=== PATIENT | female | born 1940 | race Caucasian/White ===

== ENCOUNTER → 2017-10-11 | Outpatient (CLI) | payer MEDICARE, OTHER ==
[~2017-10-11] MED LIST: AMIT25 PO; ASPI325; CALCIUM + D3 E1 EACH; FIBER500 MG; FLAX; LINZESS145 MCG PO; Lutein 15 MG S1 EACH; METF500 PO; Multiple Vitam1 EAC1; PROLIA60 MG/1 ML; SYNTHROID112 MCG PO; VAGIFEM10 MCG; ZOLM2.5
== END | disposition home or self-care (01) ==
LOC: PLD 10:14 → LAB SHORT 10:14
DX: D22.5 Melanocytic nevi of trunk (principal)
CPT/HCPCS: 88305

== ENCOUNTER 2022-04-22 08:08 | Emergency (ER) | payer MEDICARE, OTHER ==
[~2022-04-22] VITALS: Ht 157.5 cm; Wt 48.5 kg
[2022-04-22 08:30] LABS: BASOPHILS PERCENT AUTO 2 % (0-2); EOSINOPHILS ABSOLUTE AUTO 0.06 K/mm3 (0.00-0.68); EOSINOPHILS PERCENT AUTO 1 % (0-6); Hematocrit 35.2 % (33.0-51.0); IMMATURE GRAN ABSOLUTE AUTO 0.02 K/mm3 (0.00-0.10); IMMATURE GRAN PERCENT AUTO 0 % (0-1); LYMPHOCYTES ABSOLUTE AUTO 1.51 K/mm3 (0.84-5.20); LYMPHOCYTES PERCENT AUTO 27 % (21-46); MONOCYTES ABSOLUTE AUTO 0.85 K/mm3 (0.16-1.47); MONOCYTES PERCENT AUTO 15 % (4-13); Mean Corpuscular HGB Conc 34.1 g/dL (31.5-36.5); Mean Corpuscular Volume 91 fL (80-100); Mean Platelet Volume 8.2 fL (9.1-12.4); NEUTROPHILS ABSOLUTE AUTO 3.12 K/mm3 (1.96-9.15); NEUTROPHILS PERCENT AUTO 55 % (41-73); Platelet Count 385 K/mm3 (150-400); RDW Coefficient Variation 12.9 % (11.7-14.2); RDW Standard Deviation 42.5 fL (35.1-46.3); Red Blood Cell Count 3.87 M/mm3 (3.80-5.20); White Blood Cell Count 5.66 K/mm3 (4.00-11.30)
[2022-04-22] MEDS ORDERED: DIAZEPAM10 MG PO (08:35)
[2022-04-22] MEDS ORDERED: Norco 5-325 Ta1 EACH PO (08:35)
[2022-04-22] MEDS ORDERED: TRAM50 PO (08:36)
[2022-04-22] MEDS ORDERED: LINZESS290 MCG PO (08:36)
[2022-04-22] MEDS ORDERED: EUTHYROX112 MC1 PO (08:36)
[2022-04-22 08:58] LABS: Albumin, Blood 3.8 g/dL (3.4-5.0); Albumin/Globulin Ratio 1.2 (0.8-1.8); Bilirubin, Total 0.3 mg/dL (0.1-1.0); Calcium, Blood 8.9 mg/dL (8.5-10.1); Creatinine, Blood 0.42 mg/dL (0.40-1.00); Globulin, Blood 3.2 g/dL (2.2-4.0)
== END 2022-04-22 09:57 | disposition home or self-care (01) ==
LOC: ER 08:08
PROVIDERS: Emergency Medicine
DX: G45.9 Transient cerebral ischemic attack, unspecified (principal); Z88.8 Allergy status to other drugs, medicaments and biological substances
CPT/HCPCS: 36415; 70450; 80053; 84484; 85025; 93005; 93010

== ENCOUNTER 2022-05-27 17:33 | Emergency (ER) | payer MEDICARE, OTHER ==
[~2022-05-27] VITALS: Ht 157.5 cm; Wt 59.0 kg
[~2022-05-27 17:33] MED LIST changes: +DIAZEPAM10 MG PO; +EUTHYROX112 MC1 PO; +LINZESS290 MCG PO; +Norco 5-325 Ta1 EACH PO; +TRAM50 PO
[2022-05-27] MEDS ORDERED: LINZESS145 MCG PO (17:47)
[2022-05-27 18:26] LABS: BASOPHILS ABSOLUTE AUTO 0.12 K/mm3 (0.00-0.23); BASOPHILS PERCENT AUTO 2 % (0-2); EOSINOPHILS ABSOLUTE AUTO 0.41 K/mm3 (0.00-0.68); EOSINOPHILS PERCENT AUTO 6 % (0-6); Hematocrit 31.4 % (33.0-51.0); Hemoglobin 10.9 g/dL (11.5-16.0); IMMATURE GRAN ABSOLUTE AUTO 0.01 K/mm3 (0.00-0.10); IMMATURE GRAN PERCENT AUTO 0 % (0-1); LYMPHOCYTES ABSOLUTE AUTO 1.97 K/mm3 (0.84-5.20); LYMPHOCYTES PERCENT AUTO 27 % (21-46); MONOCYTES ABSOLUTE AUTO 0.71 K/mm3 (0.16-1.47); MONOCYTES PERCENT AUTO 10 % (4-13); Mean Corpuscular HGB 31.1 pg (26.0-34.0); Mean Corpuscular HGB Conc 34.7 g/dL (31.5-36.5); Mean Corpuscular Volume 90 fL (80-100); Mean Platelet Volume 8.1 fL (9.1-12.4); NEUTROPHILS ABSOLUTE AUTO 4.06 K/mm3 (1.96-9.15); NEUTROPHILS PERCENT AUTO 56 % (41-73); Platelet Count 368 K/mm3 (150-400); RDW Coefficient Variation 13.2 % (11.7-14.2); RDW Standard Deviation 42.7 fL (35.1-46.3); Red Blood Cell Count 3.51 M/mm3 (3.80-5.20); White Blood Cell Count 7.28 K/mm3 (4.00-11.30)
[2022-05-27 18:43] LABS: Albumin, Blood 3.9 g/dL (3.4-5.0); Albumin/Globulin Ratio 1.3 (0.8-1.8); Bilirubin, Total 0.2 mg/dL (0.1-1.0); Bun/Creatinine Ratio 27.8 (12.0-20.0); Creatinine, Blood 0.43 mg/dL (0.40-1.00); Globulin, Blood 2.9 g/dL (2.2-4.0); Total Protein, Blood 6.8 g/dL (6.4-8.2)
[2022-05-27] MEDS ORDERED: CLOP75 PO (22:25)
== END 2022-05-27 22:50 | disposition home or self-care (01) ==
LOC: ER 17:33
PROVIDERS: Emergency Medicine
DX: G45.9 Transient cerebral ischemic attack, unspecified (principal); E03.9 Hypothyroidism, unspecified; Z88.1 Allergy status to other antibiotic agents; Z88.8 Allergy status to other drugs, medicaments and biological substances; Z79.890 Hormone replacement therapy; Z79.899 Other long term (current) drug therapy
CPT/HCPCS: 70450; 70496; 70498; 80053; 85025; 93005; 93010; A9270; Q9967

== ENCOUNTER → 2023-02-19 | Outpatient (CLI) | payer MEDICARE, OTHER ==
[~2023-02-19] MED LIST changes: +CLOP75 PO
[2023-02-19 10:02] LABS: Creatinine Urine 19.2 mg/dL (27.00-270.00)
[2023-02-19 10:10] LABS: Calcium, Urine 9.3 mg/dL (< 17.5); Calcium, Urine Calculation 167.4 mg/24hrs (42.0-353.0)
== END | disposition home or self-care (01) ==
LOC: LAB 08:03 → LAB SHORT 08:03
PROVIDERS: Internal Medicine Endocrinology, Diabetes & Metabolism
DX: E21.3 Hyperparathyroidism, unspecified (principal)
CPT/HCPCS: 81050; 82340; 82570

== ENCOUNTER → 2023-05-15 | Outpatient (CLI) | payer MEDICARE, OTHER ==
[2023-05-15 12:27] LABS: Calcium, Urine <5.0 mg/dL (< 17.5); Calcium, Urine Calculation Unable to Calculate mg/24hrs (42.0-353.0)
== END | disposition home or self-care (01) ==
LOC: LAB 05:30 → LAB SHORT 05:30
PROVIDERS: Internal Medicine Endocrinology, Diabetes & Metabolism
DX: E21.3 Hyperparathyroidism, unspecified (principal)
CPT/HCPCS: 81050; 82340; 82570

== ENCOUNTER 2023-07-19 10:38 | Day surgery (SDC) | payer MEDICARE, OTHER ==
[~2023-07-19] VITALS: Ht 157.5 cm; Wt 46.5 kg
[~2023-07-19 10:38] MED LIST changes: +Balanced Salt Epinephrine Irrigation Solution 500 mL IR SCH; +ESTRADIOL VAG; +FERROUS SULFAT325 M3; +Lidocaine HCl/Pf 1% 5 ML VIAL XX SCH; +MONT10T PO; +Moxifloxacin HCL 0.5 MG/0.1 ML 0.4MLSYR RIGHTEYE SCH; +NITRO-BID; +NS 500 ML IV ONE; +PHENYLEPHRINE\\TROPICAMIDE\\TETRACAINE OPHTHALMIC DILATING SOLN RIGHTEYE PRN; +PROLIA60 MG/1 ML SC; +Povidone-Iodine 450 DROP/30 ML Solution ONE; +Povidone-Iodine 450 DROP/30 ML Solution RIGHTEYE SCH; +Prednisone5 MG PO; +SYNTHROID112 M12 PO; +Triamcinolone Inj Susp 40 MG / ML 1ML Vial INJ SCH; +Triamcinolone Inj Susp 40 MG / ML 1ML Vial ONE; +ZOLMITRIPTAN ODT5 MG PO
--- NOTE | 2023-07-19 11:13 | NUR ---
07/19/23 1113 Destiney Flores AT 1109 PLECOURTET AT 1110
[2023-07-19] MEDS ORDERED: NS 500 ML IV ONE (11:27)
[2023-07-19] MEDS ORDERED: FentaNYL Citrate 50 MCG/ML 2 ML Injection ONE (11:37)
[2023-07-19] MEDS ORDERED: Tetracaine HCl 0.5% Opth Soln 15 ml RIGHTEYE ONE (11:56)
[2023-07-19 13:25] VITALS: BP 143/74
== END 2023-07-19 12:45 | disposition home or self-care (01) ==
LOC: ORSCSDS 10:38
PROVIDERS: Ophthalmology
PROC: 08RJ3JZ Replacement of Right Lens with Synthetic Substitute, Percutaneous Approach (ICD-10-PCS; principal; 2023-07-19 12:30)
DX: E11.36 Type 2 diabetes mellitus with diabetic cataract (principal); H25.13 Age-related nuclear cataract, bilateral; H52.201 Unspecified astigmatism, right eye; I25.10 Atherosclerotic heart disease of native coronary artery without angina pectoris; E03.9 Hypothyroidism, unspecified; F41.9 Anxiety disorder, unspecified; Z79.84 Long term (current) use of oral hypoglycemic drugs; Z79.899 Other long term (current) drug therapy; Z86.73 Personal history of transient ischemic attack (TIA), and cerebral infarction without residual deficits
CPT/HCPCS: 82947; J3010; J3301; J7040; V2632

== ENCOUNTER 2023-07-26 11:11 | Day surgery (SDC) | payer MEDICARE, OTHER ==
[~2023-07-26] VITALS: Ht 157.5 cm; Wt 47.0 kg
[~2023-07-26 11:11] MED LIST changes: +Moxifloxacin HCL 0.5 MG/0.1 ML 0.4MLSYR LEFTEYE SCH; -Moxifloxacin HCL 0.5 MG/0.1 ML 0.4MLSYR RIGHTEYE SCH; +PHENYLEPHRINE\\TROPICAMIDE\\TETRACAINE OPHTHALMIC DILATING SOLN LEFTEYE PRN; -PHENYLEPHRINE\\TROPICAMIDE\\TETRACAINE OPHTHALMIC DILATING SOLN RIGHTEYE PRN; +Povidone-Iodine 450 DROP/30 ML Solution LEFTEYE SCH; -Povidone-Iodine 450 DROP/30 ML Solution RIGHTEYE SCH
[2023-07-26] MEDS ORDERED: NS 500 ML IV ONE (11:35)
[2023-07-26] MEDS ORDERED: ASPI325EC PO (11:38)
--- NOTE | 2023-07-26 11:44 | NUR ---
07/26/23 1144 Raissa Louise IN AT 1137 CHRIS IN AT 1137 CALL LIGHT AT BEDSIDE
[2023-07-26] MEDS ORDERED: FentaNYL Citrate 50 MCG/ML 2 ML Injection ONE (11:47)
[2023-07-26] MEDS ORDERED: Midazolam HCl 1MG / ML 2ML Vial ONE (11:48)
[2023-07-26] MEDS ORDERED: Tetracaine HCl 0.5% Opth Soln 15 ml XX ONE (12:22)
[2023-07-26 12:43] VITALS: BP 125/68
== END 2023-07-26 12:57 | disposition home or self-care (01) ==
LOC: ORSCSDS 11:11
PROVIDERS: Ophthalmology
PROC: 08RK3JZ Replacement of Left Lens with Synthetic Substitute, Percutaneous Approach (ICD-10-PCS; principal; 2023-07-26 12:30)
DX: E11.36 Type 2 diabetes mellitus with diabetic cataract (principal); H25.12 Age-related nuclear cataract, left eye; Z96.1 Presence of intraocular lens; H52.202 Unspecified astigmatism, left eye; Z86.73 Personal history of transient ischemic attack (TIA), and cerebral infarction without residual deficits; E03.9 Hypothyroidism, unspecified; Z79.899 Other long term (current) drug therapy
CPT/HCPCS: 82947; J2250; J3010; J3301; J7040; V2632

== ENCOUNTER → 2024-02-25 | Outpatient (CLI) | payer MEDICARE, OTHER ==
[~2024-02-25] MED LIST changes: +ASPI325EC PO; -Balanced Salt Epinephrine Irrigation Solution 500 mL IR SCH; -Lidocaine HCl/Pf 1% 5 ML VIAL XX SCH; -Moxifloxacin HCL 0.5 MG/0.1 ML 0.4MLSYR LEFTEYE SCH; -NS 500 ML IV ONE; -PHENYLEPHRINE\\TROPICAMIDE\\TETRACAINE OPHTHALMIC DILATING SOLN LEFTEYE PRN; -Povidone-Iodine 450 DROP/30 ML Solution LEFTEYE SCH; -Povidone-Iodine 450 DROP/30 ML Solution ONE; -Triamcinolone Inj Susp 40 MG / ML 1ML Vial INJ SCH; -Triamcinolone Inj Susp 40 MG / ML 1ML Vial ONE
[2024-02-25 12:01] LABS: Creatinine Urine 13.2 mg/dL (27.00-270.00)
[2024-02-25 12:08] LABS: Calcium, Urine <5.0 mg/dL (< 17.5); Calcium, Urine Calculation Unable to Calculate mg/24hrs (42.0-353.0)
== END ==
LOC: LAB 02:33 → LAB SHORT 02:33
PROVIDERS: Internal Medicine Endocrinology, Diabetes & Metabolism
DX: E21.3 Hyperparathyroidism, unspecified (principal)
CPT/HCPCS: 82340; 82570